=== PATIENT | male | born 1940 | race African-American/Black ===

== ENCOUNTER 2017-01-22 13:37 | Inpatient (IN) | payer OTHER, BC ==
[~2017-01-22] VITALS: Ht 167.6 cm; Wt 82.6 kg
--- NOTE | ~2017-01-22 | EKG ---
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 : 1940 Requested By: Dexter Obrien Order Number: [id number] MD: Juwan Young Measurements Intervals [place] Rate: 75 P: 35 IN: 134 QRS: 47 QRSD: 96 T: 120 QT: 451 QTc: 504 Interpretive Statements Sinus arrhythmia Probable left ventricular hypertrophy Possible Inferior infarct, old Abnrm T, consider ischemia, anterolateral lds Prolonged QT interval Baseline wander in lead(s) V2,V6 Compared to ECG 07/07/2016 06:35:36 no significant change was found Electronically Signed On 01-23-2017 8:48:33 CDT by Juwan Young [email or web address] <ELECTRONICALLY SIGNED> By: Juwan Young MD, [facility] 01/23/17 0848 0645 Juwan Young MD, [facility] /EPI
--- NOTE | ~2017-01-22 | 2DMMODE ---
[facility] [address] [place] [address] 2 D/M-MODE ECHOCARDIOGRAM Name: TAN BERNAL Room #: 455-P [facility] IN [facility].#: [id number] Admission: 01/22/17 Attend Phys: Mauro Higuera, Discharge: Date of : 38 Date of Service: 01/23/17 1355 Report #: [id number] THIS REPORT FOR: //name// APPROVED REPORT Study performed: 01/23/2017 08:35:08 EXAM: Comprehensive 2D, Doppler, and color-flow Echocardiogram Patient Location: Bedside Room #: 455 Other Information Study Quality: Adequate Indications Pulmonary Hypertension 2D Dimensions RVDd: 43.01 mm LVEF(%): 46.69 (>50%) IVSd: 13.41 (7-11mm) LVOT Diam: 18.43 (18-24mm) LVDd: 51.90 mm PWd: 14.41 (7-11mm) Ascending Ao: 41.65 (22-36mm) LVDs: 39.70 (25-40mm) Aortic Root: 28.94 mm Butler's LVEF: 46.69 % Volumes Left Atrial Volume (Systole) Single Plane 4CH: 97.11 mL Single Plane 2CH: 59.90 mL LA ESV Index: 42.00 mL/m2 Aortic Valve AoV Peak Pramod.: 1.44 m/s AO Peak Gr.: 8.30 mmHg LVOT Max P.05 mmHg LVOT Max V: 1.01 m/s ENMANUEL Vmax: 1.86 cm2 Mitral Valve MV E Max Pramod.: 0.86 m/s IVRT: 143.02 ms Pulmonary Valve PV Peak Pramod.: 1.23 m/s PV Peak Gr.: 6.05 mmHg [facility] [address] [address] 2 D/M-MODE ECHOCARDIOGRAM Name: BERNAL,TAN L Room #: 455-[facility] IN ..#: [id number] Admission: 01/22/17 Attend Phys: Mauro Higuera, Discharge: Date of : 38 Date of Service: 01/23/17 1355 Report #: [id number] Pulmonary Vein P Vein S: 0.70 m/s P Vein A: 0.19 m/s P Vein D: 0.53 m/s P Vein A Dur.: 87.7 msec P Vein S/D Ratio: 1.32 Tricuspid Valve RAP Estimate: 10.00 mmHg Left Ventricle The left ventricle is normal size. Akinesis of inferior wall and basal inferoseptum Mild to moderate concentric left ventricular hypertrophy. Left ventricular systolic function is moderately decreased. LVEF is 40%. Unable to evaluate diastolic function due to varied inflow patterns. Right Ventricle Right ventricle is mildly dilated. Right ventricular systolic function could not be assessed. Atria Left atrium is dilated. The right atrium size is normal. Aortic Valve The aortic valve is mildly calcified. Trace aortic regurgitation. There is no aortic valvular stenosis. Mitral Valve The mitral valve is normal in structure. Moderate mitral regurgitation. No evidence of mitral valve stenosis. Tricuspid Valve The tricuspid valve is normal in structure. There is no tricuspid valve regurgitation noted. Pulmonic Valve The pulmonary valve is normal in structure. Trace to mild pulmonic regurgitation. Great Vessels The aortic root is normal in size. 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 IVC is not well visualized. Pericardium There is no pericardial effusion. <Conclusion> [facility] [address] [place] [address] 2 D/M-MODE ECHOCARDIOGRAM Name: ATN BERNAL Room #: 455-P [facility] IN ..#: [id number] Admission: 01/22/17 Attend Phys: Mauro Higuera, Discharge: Date of : 38 Date of Service: 01/23/17 1355 Report #: [id number] Left ventricular systolic function is moderately decreased. Akinesis of inferior wall and basal inferoseptum LVEF is 40%. Left atrium is dilated. The aortic valve is mildly calcified, no aortic valvular stenosis or insuffiency. The mitral valve is normal in structure. Moderate mitral regurgitation. Pulmonary artery pressure could not be reliably ascertained There is no pericardial effusion. <ELECTRONICALLY SIGNED> By: Juwan Young MD, [facility] 01/23/17 1355 1355 1355 Juwan Young MD, [facility] /INF
--- NOTE | ~2017-01-22 | CNG ---
[facility] [place] [address] CYTO-NONGYN REPORT PROCEDURE Name: PETER MARTINS Room #: 455-P ADM IN M.R.#: [id number] Admission: 01/22/17 Date of : 38 Discharge: Report #: [id number] Path Case #: [id number] CYTOPATHOLOGY REPORT COLLECTION DATE: 01/25/2017 RECEIVED DATE: 01/26/2017 SUBMITTING PHYS: Dr. Minesh Cifuentes OTHER PHYS: Dr. Dexter Higuera CLINICAL HISTORY: SOA,CHF Exac, pneumonia. SPECIMEN(S) RECEIVED: A.Pleural fluid * * * * * * * * * * * * FINAL DIAGNOSIS: A. Pleural fluid: - No malignant cells identified. Reactive mesothelial cells and lymphocytes present. PATHOLOGIST: Lauren Telles M.D. REPORT ELECTRONICALLY SIGNED BY: Lauren Telles M.D. DATE/TIME: 01/27/2017 14:12 * * * * * * * * * * * * GROSS PATHOLOGY: A. Pleural fluid: The specimen is submitted unfixed, labeled "Peter Martins". Received by the Cytology Department is 25 mL of red fluid. One ThinPrep slide and a cell block were prepared. (clt 01.26.2017) CATERING SOUS CHEF(S): KENA Cruz([facility]) INITIAL CPT CODE(S): A; 54487, 19872 Professional services performed by [facility] at [facility] [address], [place] [address] Technical services performed by [facility] at [address] [place] [address]., [address], [place] [address]. [facility] [address] [place] [address], [address] [facility] [address] [place] [address] CYTO-NONGYN REPORT PROCEDURE Name: PETER MARTINS Room #: 455-P ADM IN M.R.#: [id number] Admission: 01/22/17 Date of : 38 Discharge: Report #: [id number] Path Case #: [id number] [place] [address] PHONE: [phone] DIRECTOR: Joe Bingham M.D. * * * END OF REPORT * * *
--- NOTE | ~2017-01-22 | EKG ---
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: Mally LAGOS : 1940 Requested By: Rhiannon Zhao Order Number: [id number] MD: Juwan oYung Measurements Intervals [place] Rate: 75 P: 87 HI: 133 QRS: 73 QRSD: 97 T: 159 QT: 400 QTc: 447 Interpretive Statements Sinus rhythm Atrial premature complex Probable left atrial enlargement LVH with secondary repolarization abnormality Inferior infarct, old Baseline wander in lead(s) V3 Compared to ECG 07/07/2016 06:35:36 Atrial premature complex(es) now present Electronically Signed On 01-23-2017 8:42:26 CDT by Juwan Young [email or web address] <ELECTRONICALLY SIGNED> By: Juwan Young MD, [facility] 01/23/17 0842 1353 1353 Juwan Young MD, [facility] /EPI
[~2017-01-22 13:37] MED LIST: AMARYL1 MG PO; AMARYL2 MG PO; ASPIR 8181 MG PO; ATORVASTATIN CA40 MG PO; INDAPAMIDE1.25 MG PO; NIFEDIPINE ER90 M1 PO; NITROGLYCERIN0.4 MG SUBLING; PERFOROMIS20 MCG/2 M IH; PREDNISONE 10 M10 MG PO; PULMICORT0.5 MG/22 INH; TENORMIN25 MG PO; VENTOLIN HFA 1818 GM INH
[2017-01-22 13:50] VITALS: BP 159/82
[2017-01-22 14:03] LABS: ABG SAMPLE TYPE ARTERIAL; BE(vivo) 15.4 mmol/L (-2 to +3); HCO3 45.2 mmol/L (22.0-26.0); LACTATE 0.92 mmol/L (0.5-2.0); O2(CT) 13.5 mL/dL (15.0-23.0); O2Hb 95.1 % (92.0-98.0); PO2 89.6 mmHg (80.0-100.0); sO2 95.2 % (92.0-98.0); tCO2 48.1 mmol/L (24.0-30.0)
[2017-01-22 14:04] LABS: PCO2 96.5 mmHg (35.0-45.0); STICK SITE R.RADIAL; pH 7.288 (7.360-7.450)
[2017-01-22 14:35] LABS: MANUAL DIFF YES; RBC 3.06 mil/uL (4.50-6.00)
[2017-01-22 14:36] LABS: HEMATOCRIT 28.1 % (42.0-52.0); HEMOGLOBIN 9.1 gm/dL (14.0-18.0); MCH 29.8 pg (26.0-34.0); MCHC 32.3 % (28.0-37.0); RDW 17.3 % (10.5-14.5)
[2017-01-22 14:38] LABS: CALCIUM 8.7 mg/dL (8.5-10.1); CREATININE 1.7 mg/dL (0.7-1.3); POTASSIUM 4.4 mmol/L (3.5-5.1)
[2017-01-22 14:49] LABS: TROPONIN-I 0.2 ng/mL (<0.04-0.07)
[2017-01-22 15:01] LABS: ABSOLUTE NEUTROPHILS 6.1 thou/uL (1.4-8.2); TOTAL CELL COUNT 100
[2017-01-22 15:02] LABS: ANISOCYTOSIS 1+; PLATELET COUNT 176 thou/uL (150-400)
[2017-01-22 15:06] VITALS: BP 159/72
[2017-01-22 16:17] LABS: ABG SAMPLE TYPE ARTERIAL; BE(vivo) 13.6 mmol/L (-2 to +3); HCO3 41.7 mmol/L (22.0-26.0); LACTATE 0.93 mmol/L (0.5-2.0); O2(CT) 12.3 mL/dL (15.0-23.0); PCO2 76.7 mmHg (35.0-45.0); PO2 56.7 mmHg (80.0-100.0); pH 7.353 (7.360-7.450); sO2 86.6 % (92.0-98.0)
[2017-01-22 16:19] LABS: Pressure Support 16 cm H20; STICK SITE R.RADIAL; VDS BIPAP SPONT TIMED cc
[2017-01-22 17:00] VITALS: BP 172/97
[2017-01-22 20:28] LABS: HEMATOCRIT 29.4 % (42.0-52.0); HEMOGLOBIN 9.5 gm/dL (14.0-18.0)
[2017-01-22 21:24] VITALS: BP 167/99
[2017-01-23] VITALS (7 sets, daily range): BP systolic 139–168; BP diastolic 79–91
[2017-01-23 07:41] LABS: HEMATOCRIT 25.4 % (42.0-52.0); HEMOGLOBIN 8.3 gm/dL (14.0-18.0); MCHC 32.8 g/dL (28.0-37.0); MCV 88.3 fL (80.0-100.0); PLATELET COUNT 176 thou/uL (150-400); RBC 2.87 mil/uL (4.50-6.00); RDW 17.4 % (10.5-14.5); WBC 3.5 thou/uL (4.0-11.0)
[2017-01-23 07:52] LABS: MANUAL DIFF YES
[2017-01-23 08:02] LABS: ALBUMIN 2.6 g/dL (3.4-5.0); ALKALINE PHOSPHATASE 49 U/L (46-116); BUN 29 mg/dL (7-18); CALCIUM 8.8 mg/dL (8.5-10.1); CHLORIDE 101 mmol/L (98-107); CREATININE 1.9 mg/dL (0.7-1.3); GLUCOSE 101 mg/dL (74-106); PHOSPHORUS 4.8 mg/dL (2.5-4.9); POTASSIUM 3.7 mmol/L (3.5-5.1); SGOT 24 U/L (15-37); SGPT 22 U/L (30-65); SODIUM 148 mmol/L (136-145); TOTAL BILIRUBIN 0.6 mg/dL (<0.1-1.0); TOTAL PROTEIN 6.4 g/dL (6.4-8.2)
[2017-01-23 08:08] LABS: CO2 > 45 mmol/L (21-32); TROPONIN-I 2.67 ng/mL (<0.04-0.07)
[2017-01-23 08:29] LABS: ABG SAMPLE TYPE ARTERIAL; BE(vivo) 18.7 mmol/L (-2 to +3); HCO3 45.7 mmol/L (22.0-26.0); LACTATE 1.41 mmol/L (0.5-2.0); O2(CT) 11.6 mL/dL (15.0-23.0); O2Hb 91.3 % (92.0-98.0); PO2 65.1 mmHg (80.0-100.0); pH 7.422 (7.360-7.450); sO2 92.2 % (92.0-98.0); tCO2 47.9 mmol/L (24.0-30.0)
[2017-01-23 08:30] LABS: PCO2 71.8 mmHg (35.0-45.0); STICK SITE R.RADIAL
[2017-01-23 08:45] LABS: ABSOLUTE NEUTROPHILS 3.3 thou/uL (1.4-8.2); TOTAL CELL COUNT 100
[2017-01-23 08:47] LABS: ANISOCYTOSIS 1+
[2017-01-24 03:14] VITALS: BP 149/81
[2017-01-24 06:25] LABS: HEMATOCRIT 24.2 % (42.0-52.0); MCH 29.2 pg (26.0-34.0); MCHC 32.9 g/dL (28.0-37.0); MCV 88.8 fL (80.0-100.0); PLATELET COUNT 184 thou/uL (150-400); RBC 2.73 mil/uL (4.50-6.00); RDW 17.8 % (10.5-14.5)
[2017-01-24 06:29] LABS: MANUAL DIFF YES
[2017-01-24 08:40] LABS: ABSOLUTE NEUTROPHILS 6.5 thou/uL (1.4-8.2); ANISOCYTOSIS SLIGHT; POIKILOCYTOSIS SLIGHT; TOTAL CELL COUNT 100
[2017-01-24 09:17] LABS: URINE BILIRUBIN NEGATIVE (Negative); URINE BLOOD 1+ (Negative); URINE COLOR YELLOW; URINE GLUCOSE-RANDOM* NEGATIVE (Negative); URINE KETONES NEGATIVE (Negative); URINE NITRITE NEGATIVE (Negative); URINE PROTEIN (DIPSTICK) 2+ (Negative); URINE SPECIFIC GRAVITY 1.015 (1.003-1.035); URINE UROBILINOGEN 0.2 E.U./dl (0.2-1.0)
[2017-01-24 09:26] LABS: SQUAMOUS 0-3 Few /LPF (0-3)
[2017-01-24 09:27] LABS: BACTERIA 1-9 Few /HPF (None Seen); CRYSTALS None Seen /LPF (None Seen); HYALINE CASTS 0-3 Few /LPF (None Seen); URINE RBC 0-2 Rare /HPF (0-2); URINE WBC 0-5 Rare /HPF (0-5)
[2017-01-24 11:20] VITALS: BP 130/98
[2017-01-24 12:29] LABS: CALCIUM 8.2 mg/dL (8.5-10.1); CREATININE 2.1 mg/dL (0.7-1.3); POTASSIUM 3.6 mmol/L (3.5-5.1)
[2017-01-24 12:37] LABS: % SATURATION 21 % (20-39); IRON 43 ug/dL (65-175); TIBC 208 ug/dL (250-450); UIBC 165 ug/dL
[2017-01-24 13:03] LABS: FOLIC ACID 6.4 ng/mL (8.6-58.9)
[2017-01-24 14:18] LABS: APTT 29.6 Seconds (24.5-32.8); INR 1.1
[2017-01-24 19:55] VITALS: BP 150/58
[2017-01-25 03:28] VITALS: BP 153/92
[2017-01-25 06:19] LABS: HEMATOCRIT 24.4 % (42.0-52.0); HEMOGLOBIN 8.1 gm/dL (14.0-18.0); MCH 29.5 pg (26.0-34.0); MCHC 33.2 g/dL (28.0-37.0); MCV 88.7 fL (80.0-100.0); PLATELET COUNT 198 thou/uL (150-400); RBC 2.75 mil/uL (4.50-6.00); RDW 17.6 % (10.5-14.5); WBC 8.4 thou/uL (4.0-11.0)
[2017-01-25 06:22] LABS: MANUAL DIFF YES
[2017-01-25 06:40] LABS: CALCIUM 8.2 mg/dL (8.5-10.1); CREATININE 1.8 mg/dL (0.7-1.3); POTASSIUM 3.6 mmol/L (3.5-5.1)
[2017-01-25 07:03] LABS: ABSOLUTE NEUTROPHILS 8.1 thou/uL (1.4-8.2); ANISOCYTOSIS 1+; POLYCHROMASIA OCCASIONAL; TOTAL CELL COUNT 100
[2017-01-25 08:21] LABS: ABG SAMPLE TYPE ARTERIAL; BE(vivo) 18.4 mmol/L (-2 to +3); HCO3 44.9 mmol/L (22.0-26.0); LACTATE 1.52 mmol/L (0.5-2.0); O2(CT) 12.6 mL/dL (15.0-23.0); O2Hb 94.7 % (92.0-98.0); PCO2 65.8 mmHg (35.0-45.0); PO2 80.8 mmHg (80.0-100.0); STICK SITE L.RADIAL; pH 7.452 (7.360-7.450); tCO2 46.9 mmol/L (24.0-30.0)
[2017-01-25 08:25] VITALS: BP 156/95
[2017-01-25 11:15] VITALS: BP 152/95
[2017-01-25 15:05] VITALS: BP 132/73
[2017-01-25 19:10] VITALS: BP 148/88
[2017-01-26 03:03] VITALS: BP 154/97
[2017-01-26 04:45] VITALS: BP 151/91
[2017-01-26 06:02] LABS: CALCIUM 6.9 mg/dL (8.5-10.1); CREATININE 1.2 mg/dL (0.7-1.3); POTASSIUM 3.2 mmol/L (3.5-5.1)
[2017-01-26 08:05] VITALS: BP 164/103
[2017-01-26 12:15] VITALS: BP 132/77
[2017-01-26 13:42] LABS: BF NUCLEATED CELLS 1372; BF RBC 58190
[2017-01-26 16:45] VITALS: BP 150/83
[2017-01-26 17:10] LABS: BF COMMENTS MONOCYTE 1; BF MACROPHAGE 11; BF NEUTROPHILS 2; CLARITY CLOUDY; COLOR RED; MANUAL DIFF YES; TOTAL VOLUME 60 mL
[2017-01-26 20:16] VITALS: BP 144/90
[2017-01-27 04:15] VITALS: BP 146/89
[2017-01-27 06:48] LABS: HEMATOCRIT 27.3 % (42.0-52.0); HEMOGLOBIN 8.8 gm/dL (14.0-18.0); MCHC 32.3 g/dL (28.0-37.0); MCV 89.9 fL (80.0-100.0); RBC 3.04 mil/uL (4.50-6.00); RDW 17.8 % (10.5-14.5); WBC 8.1 thou/uL (4.0-11.0)
[2017-01-27 07:03] VITALS: BP 142/90
[2017-01-27 07:09] LABS: ANION GAP < 0 mmol/L (7-16); BUN 44 mg/dL (7-18); CALCIUM 8.1 mg/dL (8.5-10.1); CHLORIDE 100 mmol/L (98-107); CO2 43 mmol/L (21-32); CREATININE 1.7 mg/dL (0.7-1.3); GLUCOSE 139 mg/dL (74-106); POTASSIUM 4.1 mmol/L (3.5-5.1); SODIUM 142 mmol/L (136-145)
[2017-01-27 10:58] VITALS: BP 128/73
[2017-01-27 13:09] LABS: BODY FLUID ALBUMIN 1.1 g/dL (()); BODY FLUID AMYLASE 28 U/L (()); BODY FLUID GLUCOSE 132 mg/dL (()); BODY FLUID LDH 105 IU/L (()); BODY FLUID PROTEIN 1.9 g/dL (())
[2017-01-27 15:20] VITALS: BP 130/71
[2017-01-27 20:06] VITALS: BP 148/77
[2017-01-28 03:19] VITALS: BP 144/97
[2017-01-28 08:03] VITALS: BP 136/75
[2017-01-28 11:15] VITALS: BP 116/66
[2017-01-28 16:18] VITALS: BP 125/73
[2017-01-28 20:08] VITALS: BP 153/66
[2017-01-28 21:18] VITALS: BP 136/77
[2017-01-29 03:10] VITALS: BP 148/83
[2017-01-29 07:41] VITALS: BP 160/88
[2017-01-29 11:07] VITALS: BP 119/72
[2017-01-29 15:07] VITALS: BP 123/74
[2017-01-29 19:13] VITALS: BP 150/89
[2017-01-30 05:40] VITALS: BP 148/85
[2017-01-30 07:03] VITALS: BP 141/78
[2017-01-30 11:01] VITALS: BP 124/69
[2017-01-30 14:53] VITALS: BP 124/69
[2017-01-30 15:48] VITALS: BP 117/67
[2017-01-30 20:31] VITALS: BP 141/68
[2017-01-31 03:23] VITALS: BP 146/99
[2017-01-31 08:04] VITALS: BP 159/84
[2017-01-31] MEDS ORDERED: LASIX 40 MG TAB40 M1 PO (09:47)
[2017-01-31] MEDS ORDERED: PREDNISONE 20 M20 M1 PO (09:47)
[2017-01-31] MEDS ORDERED: LEVAQUIN 250 M250 MG PO (09:47)
[2017-01-31] MEDS ORDERED: AMLODIPINE BESY10 MG PO (09:47)
[2017-01-31] MEDS ORDERED: CARVEDILOL6.25 MG PO (09:47)
== END 2017-01-31 13:10 | disposition home health service (06) | DRG 871 ==
LOC: ER 13:37 → 4W 15:18 → EROBS 15:18 → 4W 16:14
PROVIDERS: Emergency Medicine; Family Medicine; Hospitalist; Internal Medicine Cardiovascular Disease; Internal Medicine Pulmonary Disease
PROC: 5A09557 Assistance with Respiratory Ventilation, Greater than 96 Consecutive Hours, Continuous Positive Airway Pressure (ICD-10-PCS; 2017-01-22)
PROC: 0W993ZZ Drainage of Right Pleural Cavity, Percutaneous Approach (ICD-10-PCS; principal; 2017-01-26)
DX: A41.9 Sepsis, unspecified organism (principal); I21.4 Non-ST elevation (NSTEMI) myocardial infarction; J18.9 Pneumonia, unspecified organism; J96.21 Acute and chronic respiratory failure with hypoxia; I50.43 Acute on chronic combined systolic (congestive) and diastolic (congestive) heart failure; J96.22 Acute and chronic respiratory failure with hypercapnia; J44.1 Chronic obstructive pulmonary disease with (acute) exacerbation; J44.0 Chronic obstructive pulmonary disease with (acute) lower respiratory infection; I25.110 Atherosclerotic heart disease of native coronary artery with unstable angina pectoris; I13.0 Hypertensive heart and chronic kidney disease with heart failure and stage 1 through stage 4 chronic kidney disease, or unspecified chronic kidney disease; E87.2 Acidosis; N17.9 Acute kidney failure, unspecified; J90 Pleural effusion, not elsewhere classified; E87.70 Fluid overload, unspecified; D64.9 Anemia, unspecified; E11.22 Type 2 diabetes mellitus with diabetic chronic kidney disease; T38.0X5A Adverse effect of glucocorticoids and synthetic analogues, initial encounter; E78.5 Hyperlipidemia, unspecified; N18.9 Chronic kidney disease, unspecified; E11.65 Type 2 diabetes mellitus with hyperglycemia; Z95.1 Presence of aortocoronary bypass graft; Z98.52 Vasectomy status; Z99.81 Dependence on supplemental oxygen; Z87.891 Personal history of nicotine dependence; Z79.82 Long term (current) use of aspirin; Z79.899 Other long term (current) drug therapy; Z82.49 Family history of ischemic heart disease and other diseases of the circulatory system; Z83.3 Family history of diabetes mellitus; Y92.89 Other specified places as the place of occurrence of the external cause
CPT/HCPCS: 10045

== ENCOUNTER 2018-06-14 20:01 | Inpatient (IN) | payer OTHER, BC ==
[~2018-06-14] VITALS: Ht 167.6 cm; Wt 81.1 kg
--- NOTE | ~2018-06-14 | EKG ---
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 : 1940 Requested By: Art Melendez Order Number: [id number] MD: José Mercado Measurements Intervals [place] Rate: 62 P: 80 [place]: 139 QRS: 72 QRSD: 125 T: 1 QT: 462 QTc: 470 Interpretive Statements Sinus rhythm Sinus pause Nonspecific intraventricular conduction delay Inferior infarct, old Compared to ECG 01/23/2017 06:45:44 Sinus pause or arrest now present Intraventricular conduction delay now present Electronically Signed On 06-16-2018 17:55:40 PLASTIC SURGERY SPECIALIST by José Mercado [email or web address] <ELECTRONICALLY SIGNED> By: José Mercado MD 06/16/18 1755 01 01 José Mercado MD /EPI
--- NOTE | ~2018-06-14 | 2DMMODE ---
[facility] [address] [place] [address] 2 D/M-MODE ECHOCARDIOGRAM Name: BERNAL,TAN L Room #: 243-P [facility] IN [facility]#: [id number] Admission: 06/14/18 Attend Phys: Charlie Acuna MD Discharge: Date of : 38 Date of Service: 06/15/18 1729 Report #: [id number] THIS REPORT FOR: //name// APPROVED REPORT Study performed: 06/15/2018 14:05:42 EXAM: Comprehensive 2D, Doppler, and color-flow Echocardiogram Patient Location: In-Patient Room #: [facility] Status: routine BSA: 1.91 HR: 80 bpm BP: 122/64 mmHg Other Information Study Quality: Fair Indications Respiratory Failure 2D Dimensions IVSd: 12.46 (7-11mm) LVOT Diam: 20.64 (18-24mm) LVDd: 45.18 mm PWd: 12.84 (7-11mm) LVDs: 27.41 (25-40mm) Left Atrium: 33.00 (27-40mm) Aortic Root: 30.14 mm IVC: 2.30 mm Volumes Left Atrial Volume (Systole) Single Plane 4CH: 68.61 mL Single Plane 2CH: 92.65 mL Aortic Valve AoV Peak Pramod.: 1.86 m/s AO Peak Gr.: 17.03 mmHg LVOT Max P.35 mmHg LVOT Max V: 1.16 m/s ENMANUEL Vmax: 2.08 cm2 Mitral Valve E/A Ratio: 0.8 MV Decel. Time: 233.40 ms MV E Max Pramod.: 0.76 m/s MV A Pramod.: 0.92 m/s MV Max Pramod.: 5.32 m/s [facility] [address] [place] [address] 2 D/M-MODE ECHOCARDIOGRAM Name: TAN BERNAL Room #: [address] [place] [address]#: [id number] Admission: 06/14/18 Attend Phys: Charlie Acuna MD Discharge: Date of : 38 Date of Service: 06/15/18 1729 Report #: [id number] Mean Pramod.: 4.10 m/s MV PHT: 67.68 ms Tricuspid Valve TR Peak Pramod.: 2.93 m/s TR Peak Gr.: 34.33 mmHg Left Ventricle The left ventricle is normal size. Mild concentric left ventricular hypertrophy. The left ventricular systolic function is normal. The left ventricular ejection fraction is within the normal range. LVEF is 55-60%. Grade I - abnormal relaxation pattern. Right Ventricle The right ventricle is normal size. There is normal right ventricular wall thickness. The right ventricular systolic function is normal. Atria Left atrium is dilated. The right atrium size is normal. Aortic Valve The aortic valve is normal in structure. Trace aortic regurgitation. Mitral Valve The mitral valve is normal in structure. Trace mitral regurgitation. Tricuspid Valve The tricuspid valve is normal in structure. Trace tricuspid regurgitation. Pulmonic Valve Pulmonic valve is not well visualized. Trace pulmonic regurgitation. Great Vessels The aortic root is normal in size. IVC is dilated and collapses <50% with inspiration. Pericardium There is no pericardial effusion. Critical Notification Critical Value: No [facility] [address] [place] [address] 2 D/M-MODE ECHOCARDIOGRAM Name: EBRNAL,TAN L Room #: 243-P [facility] IN M.R.#: [id number] Admission: 06/14/18 Attend Phys: Charlie Acuna MD Discharge: Date of : 38 Date of Service: 06/15/181728 Report #: [id number] <Conclusion> The left ventricle is normal size. LVEF is 55-60%. Left atrium is dilated. The aortic valve is normal in structure. Trace aortic regurgitation. The mitral valve is normal in structure. Trace mitral regurgitation. The tricuspid valve is normal in structure. Trace tricuspid regurgitation. Pulmonic valve is not well visualized. Trace pulmonic regurgitation. There is no pericardial effusion. <ELECTRONICALLY SIGNED> By: José Mercado MD 06/15/181728 28 1729 José Mercado MD /INF
--- NOTE | ~2018-06-14 | PATH ---
[facility] [address] [place] [address] PATHOLOGY RPT PROCEDURE Name: TAN BERNAL Room #: 243-P ADM IN M.R.#: [id number] Admission: 06/14/18 Date of : 38 Discharge: Report #: [id number] Path Case #: [id number] Note [facility] Accession Number: [id number] TESTS RESULT FLAG UNITS REF RANGE LAB Clinician Provided Cytology Information No. of containers..01 Other (Miscellaneous) Source: PLEURAL DIAGNOSIS: 02 PLEURAL NEGATIVE FOR MALIGNANT CELLS. SCANT CELLULARITY. MESOTHELIAL CELLS ARE PRESENT. THIS INTERPRETATION INCLUDES EVALUATION OF A CELL BLOCK. Signed out by: Lauren Telles MD, Pathologist NPI- [id number] Performed by: Brian Beaver, Packing Machine Inspector ([facility]) Gross description: 01 10ML, IGOR, CLOUDY /LCS FLAG LEGEND: L-Low Normal,H-High Normal,LL-Alert Low,HH-Alert High <-Panic Low,>-Panic High,A-Abnormal,AA-Critical Abnormal Performed at: [address] [place] [address] Evans Blakely MD, [address] [address] Lauren Telles MD, Specimen Comment: A courtesy copy of this report has been sent to Specimen Comment: [phone]. Specimen Comment: Report sent to Performed at: [address], [place], [place] [id number] MD Evans Blakely MD Phone: [phone]
--- NOTE | ~2018-06-14 | O ---
[facility] [place] [address] OPERATIVE REPORT Name: TAN BERNAL Jeff Room #: 243-P [facility] IN M.R.#: [id number] Admission: 06/14/18 Attend Phys: Kevin Tanner Discharge: Date of : 38 Report #: [id number] THIS REPORT FOR: //name// CC: Kevin Robertson DATE OF SERVICE: 06/19/2018 CLINICAL HISTORY: A 78-year-old male with respiratory failure and pneumonia. Per nursing and respiratory therapist, the patient still has increased copious secretions. Diagnostic bronchoscopy was performed. POSTOPERATIVE DIAGNOSES: 1. Moderate mucosal edema bilaterally. 2. Mild secretions. No evidence of mucus plugging. DESCRIPTION OF PROCEDURE: Following obtaining consent and risks and benefits being explained to the patient's family, which include infection, bleeding, pneumothorax, the procedure was performed in endoscopy suite. Through the previously placed ET tube, a flexible, disposable fiberoptic bronchoscope was introduced without difficulty. The distal trachea was unremarkable other than moderate mucosal edema bilaterally. Minimal secretions were seen in the right main stem bronchus. Otherwise, right mainstem bronchus, right upper lobe, right middle lobe and right lower lobe were grossly unremarkable other than moderate mucosal edema. Left main stem bronchus, left upper lobe and left lower lobar also showed moderate mucosal edema. No evidence of mucus plugging noted. The patient tolerated the procedure well. No complications noted. Vital signs and saturation throughout the study were within the normal range. <ELECTRONICALLY SIGNED> By: Minesh Cifuentes MD 06/19/18 1941 1756 1808 Minesh Cifuentes MD /nt
--- NOTE | ~2018-06-14 | PATH ---
[facility] [address] [place] [address] PATHOLOGY RPT PROCEDURE Name: TAN BERNAL Room #: 243-P ADM IN M.R.#: [id number] Admission: 06/14/18 Date of : 38 Discharge: Report #: [id number] Path Case #: [id number] Note [facility] Accession Number: [id number] TESTS RESULT FLAG UNITS REF RANGE LAB Clinician Provided Cytology Information No. of containers..01 Other (Miscellaneous) Source: BAL RUL DIAGNOSIS: 02 BAL RUL NEGATIVE FOR MALIGNANT CELLS. NORMAL BRONCHIAL CELLS AND MACROPHAGES ARE PRESENT. PULMONARY MACROPHAGES (DUST CELLS) ARE PRESENT. ACUTE INFLAMMATION. Signed out by: Lauren Telles MD, Pathologist NPI- [id number] Performed by: Jenna Tinsley, Mooner ([facility]) Gross description: 01 15 ML, RED, CLOUDY /LCS FLAG LEGEND: L-Low Normal,H-High Normal,LL-Alert Low,HH-Alert High <-Panic Low,>-Panic High,A-Abnormal,AA-Critical Abnormal Performed at: [address] [place] [address] Evans Blakely MD, [address] [address] Lauren Telles MD, Specimen Comment: A courtesy copy of this report has been sent to Specimen Comment: [phone]. Specimen Comment: Report sent to Specimen Comment: A duplicate report has been generated due to demographic updates. Performed at: [address], [place], [place] [id number] MD Evans Blakely MD Phone: [phone]
[~2018-06-14 20:01] MED LIST changes: +AMLODIPINE BESY10 MG PO; +CARVEDILOL6.25 MG PO; +LASIX 40 MG TAB40 M1 PO; +LEVAQUIN 250 M250 MG PO; +PREDNISONE 20 M20 M1 PO
[2018-06-14 20:02] VITALS: BP 119/65
[2018-06-14 21:01] LABS: BE(vivo) 7.7 mmol/L (-2 to +3); HCO3 38.9 mmol/L (22.0-26.0); PCO2 113.7 mmHg (35.0-45.0); PO2 361.5 mmHg (80.0-100.0); pH 7.152 (7.360-7.450); sO2 99.6 % (92.0-98.0)
[2018-06-14 21:02] LABS: URINE BILIRUBIN NEGATIVE (Negative); URINE BLOOD NEGATIVE (Negative); URINE CLARITY CLOUDY; URINE COLOR YELLOW; URINE GLUCOSE-RANDOM* NEGATIVE (Negative); URINE KETONES NEGATIVE (Negative); URINE LEUKOCYTES-REFLEX NEGATIVE (Negative); URINE NITRITE-REFLEX NEGATIVE (Negative); URINE PROTEIN (DIPSTICK) 1+ (Negative); URINE SPECIFIC GRAVITY >= 1.030 (1.005-1.035); URINE UROBILINOGEN 0.2 E.U./dl (0.2-1.0)
[2018-06-14 21:09] LABS: AMP/METHAMP Negative (Negative); BARBITURATES Negative (Negative); BENZODIAZEPINES Negative (Negative); COCAINE Negative (Negative); METHADONE Negative (Negative); OPIATES Negative (Negative); PCP Negative (Negative)
[2018-06-14 21:12] LABS: BACTERIA-REFLEX >30 Many /HPF (None Seen); CASTS None Seen /LPF (None Seen); CRYSTALS None Seen /LPF (None Seen); SQUAMOUS None Seen /LPF (0-3); URINE RBC None Seen /HPF (0-2); URINE WBC-REFLEX 0-5 Rare /HPF (0-5)
[2018-06-14 21:13] LABS: ABSOLUTE NEUTROPHILS 3.8 thou/uL (1.4-8.2); BASOPHILS 0.3 % (0.0-2.0); EOSINOPHILS 0.1 % (0.0-3.0); HEMATOCRIT 27.5 % (42.0-52.0); HEMOGLOBIN 8.6 gm/dL (14.0-18.0); LYMPHOCYTES 6.7 % (24.0-44.0); MCH 28.9 pg (26.0-34.0); MCHC 31.2 g/dL (28.0-37.0); MCV 92.4 fL (80.0-100.0); PLATELET COUNT 226 thou/uL (150-400); POLYS 81.9 % (36.0-66.0); RBC 2.98 mil/uL (4.50-6.00); WBC 4.7 thou/uL (4.0-11.0)
[2018-06-14 21:15] LABS: ANION GAP 6 mmol/L (7-16); BUN 75 mg/dL (7-18); CALCIUM 8.4 mg/dL (8.5-10.1); CHLORIDE 105 mmol/L (98-107); CO2 37 mmol/L (21-32); CREATININE 3.8 mg/dL (0.7-1.3); GLUCOSE 195 mg/dL (74-106); POTASSIUM 5.2 mmol/L (3.5-5.1); SODIUM 148 mmol/L (136-145)
[2018-06-14 21:21] LABS: ALBUMIN 2.4 g/dL (3.4-5.0); MAGNESIUM 2.3 mg/dL (1.8-2.4); SGOT 17 U/L (15-37); SGPT 20 U/L (30-65); TOTAL BILIRUBIN 0.4 mg/dL (<0.1-1.0); TOTAL PROTEIN 7.2 g/dL (6.4-8.2); TROPONIN-I <0.06 ng/mL (<0.06)
[2018-06-14 22:23] VITALS: BP 113/86
[2018-06-14 22:24] LABS: BE(vivo) -0.1 mmol/L (-2 to +3); HCO3 29.8 mmol/L (22.0-26.0); PCO2 84.6 mmHg (35.0-45.0); PO2 77.6 mmHg (80.0-100.0); pH 7.164 (7.360-7.450)
[2018-06-14 23:17] VITALS: BP 69/37
[2018-06-14 23:30] VITALS: BP 86/54
[2018-06-14 23:45] VITALS: BP 83/56
[2018-06-15] VITALS (54 sets, daily range): BP systolic 82–146; BP diastolic 42–78
[2018-06-15 03:10] LABS: HEMATOCRIT 22.8 % (42.0-52.0); HEMOGLOBIN 7.1 gm/dL (14.0-18.0); MCH 28.4 pg (26.0-34.0); MCHC 31.1 g/dL (28.0-37.0); MCV 91.3 fL (80.0-100.0); RBC 2.5 mil/uL (4.50-6.00); RDW 17.8 % (10.5-14.5); WBC 4.5 thou/uL (4.0-11.0)
[2018-06-15 03:12] LABS: CALCIUM 7.8 mg/dL (8.5-10.1); CREATININE 3.5 mg/dL (0.7-1.3); POTASSIUM 4.6 mmol/L (3.5-5.1)
[2018-06-15 05:16] LABS: BE(vivo) 3.2 mmol/L (-2 to +3); HCO3 26.2 mmol/L (22.0-26.0); PO2 114.8 mmHg (80.0-100.0); pH 7.505 (7.360-7.450); sO2 98.5 % (92.0-98.0)
[2018-06-15 13:21] LABS: BE(vivo) 5.8 mmol/L (-2 to +3); HCO3 32.2 mmol/L (22.0-26.0); PCO2 58.7 mmHg (35.0-45.0); PO2 71.2 mmHg (80.0-100.0); pH 7.357 (7.360-7.450); sO2 93.3 % (92.0-98.0)
[2018-06-16] VITALS (55 sets, daily range): BP systolic 91–146; BP diastolic 48–87
[2018-06-16 05:21] LABS: RBC 2.43 mil/uL (4.50-6.00)
[2018-06-16 05:23] LABS: HEMATOCRIT 22.3 % (42.0-52.0); HEMOGLOBIN 7.1 gm/dL (14.0-18.0); MCH 29.3 pg (26.0-34.0); MCHC 32.1 g/dL (28.0-37.0); MCV 91.4 fL (80.0-100.0); RDW 18.5 % (10.5-14.5); WBC 5.2 thou/uL (4.0-11.0)
[2018-06-16 05:28] LABS: ALBUMIN 1.8 g/dL (3.4-5.0); CALCIUM 8.1 mg/dL (8.5-10.1); CREATININE 3.2 mg/dL (0.7-1.3); POTASSIUM 4.2 mmol/L (3.5-5.1); TOTAL BILIRUBIN 0.3 mg/dL (<0.1-1.0)
[2018-06-16 06:06] LABS: ABSOLUTE NEUTROPHILS 4.1 thou/uL (1.4-8.2)
[2018-06-16 06:09] LABS: PLATELET COUNT 182 thou/uL (150-400); PLATELET ESTIMATE NORMAL
[2018-06-16 06:10] LABS: ANISOCYTOSIS 1+; BURR CELLS OCCASIONAL; POLYCHROMASIA OCCASIONAL; SCHISTOCYTES OCCASIONAL; TARGET CELLS OCCASIONAL
[2018-06-16 09:26] LABS: HCO3 31.7 mmol/L (22.0-26.0); PCO2 69.7 mmHg (35.0-45.0); PO2 70.9 mmHg (80.0-100.0); pH 7.276 (7.360-7.450); sO2 91.5 % (92.0-98.0)
[2018-06-17] VITALS (23 sets, daily range): BP systolic 108–138; BP diastolic 57–77
[2018-06-17 09:39] LABS: HEMATOCRIT 27.6 % (42.0-52.0); MCH 29.4 pg (26.0-34.0); MCHC 32.4 g/dL (28.0-37.0); MCV 90.7 fL (80.0-100.0); RBC 3.04 mil/uL (4.50-6.00); WBC 4.3 thou/uL (4.0-11.0)
[2018-06-17 10:36] LABS: BE(vivo) 3.9 mmol/L (-2 to +3); HCO3 30.9 mmol/L (22.0-26.0); PCO2 62.4 mmHg (35.0-45.0); PO2 92.6 mmHg (80.0-100.0); pH 7.313 (7.360-7.450); sO2 96.2 % (92.0-98.0)
[2018-06-18] VITALS (25 sets, daily range): BP systolic 86–119; BP diastolic 51–73
[2018-06-18 06:28] LABS: ALBUMIN 1.5 g/dL (3.4-5.0); CALCIUM 7.6 mg/dL (8.5-10.1); CREATININE 2.8 mg/dL (0.7-1.3); PHOSPHORUS 4.2 mg/dL (2.5-4.9); POTASSIUM 4.1 mmol/L (3.5-5.1)
[2018-06-19] VITALS (24 sets, daily range): BP systolic 90–130; BP diastolic 49–73
[2018-06-19 05:56] LABS: HEMATOCRIT 27.4 % (42.0-52.0); HEMOGLOBIN 8.8 gm/dL (14.0-18.0); MCH 29.7 pg (26.0-34.0); MCHC 32.3 g/dL (28.0-37.0); MCV 91.8 fL (80.0-100.0); RBC 2.98 mil/uL (4.50-6.00); RDW 19.1 % (10.5-14.5); WBC 4.4 thou/uL (4.0-11.0)
[2018-06-19 06:23] LABS: CALCIUM 7.4 mg/dL (8.5-10.1); POTASSIUM 4.4 mmol/L (3.5-5.1)
[2018-06-20] VITALS (26 sets, daily range): BP systolic 92–162; BP diastolic 52–76
[2018-06-20 05:08] LABS: CALCIUM 8.1 mg/dL (8.5-10.1); CREATININE 3.2 mg/dL (0.7-1.3); POTASSIUM 4.9 mmol/L (3.5-5.1)
[2018-06-20 05:39] LABS: HEMATOCRIT 24.2 % (42.0-52.0); HEMOGLOBIN 7.5 gm/dL (14.0-18.0); MCH 29.1 pg (26.0-34.0); MCHC 31.1 g/dL (28.0-37.0); MCV 93.5 fL (80.0-100.0); PLATELET COUNT 182 thou/uL (150-400); RBC 2.59 mil/uL (4.50-6.00); RDW 19.2 % (10.5-14.5); WBC 4.7 thou/uL (4.0-11.0)
[2018-06-20 07:37] LABS: ABSOLUTE NEUTROPHILS 3.4 thou/uL (1.4-8.2); ANISOCYTOSIS 1+; HYPOCHROMASIA 1+; OVALOCYTES FEW; POIKILOCYTOSIS 1+
[2018-06-20 09:26] LABS: BE(vivo) -1.4 mmol/L (-2 to +3); HCO3 29.3 mmol/L (22.0-26.0); PO2 88.1 mmHg (80.0-100.0); sO2 92.7 % (92.0-98.0)
[2018-06-20 09:29] LABS: PCO2 93.4 mmHg (35.0-45.0); pH 7.115 (7.360-7.450)
[2018-06-20 11:07] LABS: APTT 29.4 Seconds (24.5-32.8); PROTIME 10.8 Seconds (9.3-11.4)
[2018-06-20 14:41] LABS: CLARITY CLOUDY; COLOR BROWN; SOURCE RT CHEST; TOTAL VOLUME 37 mL
[2018-06-20 15:00] LABS: BF NUCLEATED CELLS 1558; BF RBC 14159
[2018-06-20 16:01] LABS: BF MACROPHAGE 8; BF NEUTROPHILS 12
[2018-06-21] VITALS (22 sets, daily range): BP systolic 89–145; BP diastolic 48–75
[2018-06-21 05:01] LABS: HEMATOCRIT 24.1 % (42.0-52.0); HEMOGLOBIN 7.5 gm/dL (14.0-18.0); MCH 28.3 pg (26.0-34.0); MCHC 31.2 g/dL (28.0-37.0); MCV 90.8 fL (80.0-100.0); RBC 2.65 mil/uL (4.50-6.00); RDW 18.5 % (10.5-14.5); WBC 4.2 thou/uL (4.0-11.0)
[2018-06-21 05:14] LABS: ALBUMIN 2.2 g/dL (3.4-5.0); CALCIUM 8.1 mg/dL (8.5-10.1); CREATININE 3.3 mg/dL (0.7-1.3); PHOSPHORUS 4.5 mg/dL (2.5-4.9); POTASSIUM 5.1 mmol/L (3.5-5.1)
[2018-06-22] VITALS (30 sets, daily range): BP systolic 103–165; BP diastolic 50–102
[2018-06-22 05:50] LABS: HEMOGLOBIN 7.3 gm/dL (14.0-18.0); MCH 28.7 pg (26.0-34.0); MCHC 31.8 g/dL (28.0-37.0); RBC 2.55 mil/uL (4.50-6.00); RDW 18.7 % (10.5-14.5); WBC 3.4 thou/uL (4.0-11.0)
[2018-06-22 06:05] LABS: CALCIUM 7.9 mg/dL (8.5-10.1); CREATININE 3.3 mg/dL (0.7-1.3); PHOSPHORUS 4.4 mg/dL (2.5-4.9); POTASSIUM 5.3 mmol/L (3.5-5.1)
[2018-06-22 09:41] LABS: SOURCE THORACENTESIS
[2018-06-22 14:07] LABS: BODY FLUID ALBUMIN 0.9 g/dL (()); BODY FLUID AMYLASE 41 U/L (()); BODY FLUID GLUCOSE 147 mg/dL (()); BODY FLUID LDH 108 IU/L (()); BODY FLUID PROTEIN 2.7 g/dL (())
[2018-06-23] VITALS (46 sets, daily range): BP systolic 89–156; BP diastolic 49–75
[2018-06-23 05:12] LABS: ALBUMIN 1.9 g/dL (3.4-5.0); CALCIUM 7.9 mg/dL (8.5-10.1); CREATININE 3.2 mg/dL (0.7-1.3); PHOSPHORUS 4.8 mg/dL (2.5-4.9); POTASSIUM 5.2 mmol/L (3.5-5.1)
[2018-06-24] VITALS (22 sets, daily range): BP systolic 91–149; BP diastolic 49–82
[2018-06-24 05:08] LABS: HEMATOCRIT 23.5 % (42.0-52.0); HEMOGLOBIN 7.7 gm/dL (14.0-18.0); MCH 29.2 pg (26.0-34.0); MCHC 32.9 g/dL (28.0-37.0); MCV 88.9 fL (80.0-100.0); RBC 2.65 mil/uL (4.50-6.00); RDW 18.2 % (10.5-14.5); WBC 4.2 thou/uL (4.0-11.0)
[2018-06-24 05:23] LABS: ALBUMIN 1.9 g/dL (3.4-5.0); PHOSPHORUS 4.8 mg/dL (2.5-4.9)
[2018-06-25] VITALS (24 sets, daily range): BP systolic 99–146; BP diastolic 52–81
[2018-06-25 05:37] LABS: CALCIUM 8.2 mg/dL (8.5-10.1); CREATININE 3.1 mg/dL (0.7-1.3); PHOSPHORUS 4.8 mg/dL (2.5-4.9); POTASSIUM 5.9 mmol/L (3.5-5.1)
[2018-06-25 05:42] LABS: HEMATOCRIT 23.1 % (42.0-52.0); HEMOGLOBIN 7.4 gm/dL (14.0-18.0); MCH 28.9 pg (26.0-34.0); MCHC 32.1 g/dL (28.0-37.0); MCV 90.1 fL (80.0-100.0); RBC 2.56 mil/uL (4.50-6.00); RDW 18.2 % (10.5-14.5); WBC 5.2 thou/uL (4.0-11.0)
[2018-06-26] VITALS (24 sets, daily range): BP systolic 83–155; BP diastolic 49–88
[2018-06-26 05:24] LABS: ALBUMIN 1.8 g/dL (3.4-5.0); CALCIUM 8.2 mg/dL (8.5-10.1); CREATININE 3.1 mg/dL (0.7-1.3); PHOSPHORUS 4.5 mg/dL (2.5-4.9)
[2018-06-26 05:26] LABS: POTASSIUM 6.2 mmol/L (3.5-5.1)
[2018-06-27] VITALS (24 sets, daily range): BP systolic 102–156; BP diastolic 55–76
[2018-06-27 09:41] LABS: ALBUMIN 1.9 g/dL (3.4-5.0); CALCIUM 8.6 mg/dL (8.5-10.1); CREATININE 3.3 mg/dL (0.7-1.3); PHOSPHORUS 5.6 mg/dL (2.5-4.9); POTASSIUM 5.6 mmol/L (3.5-5.1)
[2018-06-28] VITALS (24 sets, daily range): BP systolic 107–171; BP diastolic 52–81
[2018-06-28 08:43] LABS: ALBUMIN 1.9 g/dL (3.4-5.0); CALCIUM 8.3 mg/dL (8.5-10.1); CREATININE 3.3 mg/dL (0.7-1.3); PHOSPHORUS 5.7 mg/dL (2.5-4.9); POTASSIUM 4.8 mmol/L (3.5-5.1)
[2018-06-29] VITALS (21 sets, daily range): BP systolic 106–167; BP diastolic 54–88
[2018-06-29 05:18] LABS: ALBUMIN 1.9 g/dL (3.4-5.0); CREATININE 3.4 mg/dL (0.7-1.3); POTASSIUM 4.2 mmol/L (3.5-5.1)
[2018-06-29 08:38] LABS: BE(vivo) 6.4 mmol/L (-2 to +3); PCO2 51.6 mmHg (35.0-45.0); PO2 67.1 mmHg (80.0-100.0); pH 7.411 (7.360-7.450); sO2 93.3 % (92.0-98.0)
[2018-06-30] VITALS: BP 136/76
[2018-06-30 04:01] VITALS: BP 134/65
[2018-06-30 07:56] LABS: CALCIUM 8.2 mg/dL (8.5-10.1); CREATININE 3.3 mg/dL (0.7-1.3); PHOSPHORUS 7.1 mg/dL (2.5-4.9); POTASSIUM 4.2 mmol/L (3.5-5.1)
== END 2018-06-30 13:14 | DRG 207 ==
LOC: ER 20:01 → ICU 21:35 → EROBS 21:35 → ICU 23:17
PROVIDERS: Emergency Medicine; Family Medicine; Hospitalist; Internal Medicine; Internal Medicine Nephrology; Internal Medicine Pulmonary Disease; Nurse Practitioner Family; Pediatrics
DX: J96.21 Acute and chronic respiratory failure with hypoxia (principal); E43 Unspecified severe protein-calorie malnutrition; J18.1 Lobar pneumonia, unspecified organism; N17.9 Acute kidney failure, unspecified; E87.0 Hyperosmolality and hypernatremia; K92.2 Gastrointestinal hemorrhage, unspecified; E87.2 Acidosis; J90 Pleural effusion, not elsewhere classified; N18.4 Chronic kidney disease, stage 4 (severe); G93.40 Encephalopathy, unspecified; J44.1 Chronic obstructive pulmonary disease with (acute) exacerbation; J44.0 Chronic obstructive pulmonary disease with (acute) lower respiratory infection; Z99.11 Dependence on respirator [ventilator] status; J96.22 Acute and chronic respiratory failure with hypercapnia; E78.5 Hyperlipidemia, unspecified; E86.0 Dehydration; E87.5 Hyperkalemia; I25.10 Atherosclerotic heart disease of native coronary artery without angina pectoris; I12.9 Hypertensive chronic kidney disease with stage 1 through stage 4 chronic kidney disease, or unspecified chronic kidney disease; E11.22 Type 2 diabetes mellitus with diabetic chronic kidney disease; Z66 Do not resuscitate; D50.9 Iron deficiency anemia, unspecified; E86.9 Volume depletion, unspecified; E87.8 Other disorders of electrolyte and fluid balance, not elsewhere classified; E11.65 Type 2 diabetes mellitus with hyperglycemia; E83.51 Hypocalcemia; N28.1 Cyst of kidney, acquired; Z51.5 Encounter for palliative care; I48.91 Unspecified atrial fibrillation; Z68.28 Body mass index [BMI] 28.0-28.9, adult; Z95.1 Presence of aortocoronary bypass graft; Z98.52 Vasectomy status; Z83.3 Family history of diabetes mellitus; Z82.49 Family history of ischemic heart disease and other diseases of the circulatory system; Z79.82 Long term (current) use of aspirin; Z79.899 Other long term (current) drug therapy; Z87.891 Personal history of nicotine dependence
CPT/HCPCS: 10078; 27000